=== PATIENT | male | born 1995 | race Caucasian/White ===

== ENCOUNTER 2016-11-06 14:50 | Emergency (ER) | payer BC ==
--- NOTE | ~2016-11-06 | CR278 ---
[facility] A Service of [facility] & [facility] RADIOLOGY TEXT RESULTS PATIENT: MONICA VOGEL LOCATION: CFTX : [birth year] UNIT #: [id number] AGE: [address]: Akil Oh SEX: M ORDER DR: [id number] [facility] [address] [place], [place] [address] [id number] E MR#: [id number] Acc #: [id number] NAME: MONICA VOGEL : 1995 SEX: M STUDY DATE/TIME: 11/06/2016 14:18 UNIT: [facility] ROOM: STUDY DESCRIPTION: CR Wrist 2 View Lt Attending Physician: Akil Oh Ordering Physician: Ed Parker Newell M.D. Primary Care Physician: Primary Care Physician No MEDICAL IMAGING REPORT This report is preliminary unless electronic signature is present EXAM Left wrist 3 views INDICATIONS Wrist pain and swelling today after falling off skateboard COMPARISON No comparisons FINDINGS Casting material obscures osseous detail. There is a questionable lucency of the distal radius extending to the joint space. This may indicate a nondisplaced distal radial fracture. This is along the ulnar aspect of the distal radius. This is best seen on the straight AP view. Carpal alignment maintained. Soft tissue swelling distal forearm. IMPRESSION Casting material obscures osseous detail. However there is appears to be a lucency through the ulnar aspect of the distal radius seen on the AP view concerning for a nondisplaced fracture extending to the joint space. Dictated by... Robert Singh M.D. THIS IS AN ELECTRONICALLY VERIFIED REPORT Robert Singh M.D. at 11/06/2016 4:53 PM ARS/to TD: 11/06/2016 16:38 JOB #: [id number] MEDICAL IMAGING REPORT Page 1 of 1 COPY
--- NOTE | ~2016-11-06 | CR132 ---
[facility] A Service of [facility] & [facility] RADIOLOGY TEXT RESULTS PATIENT: MONICA VOGEL LOCATION: CFTX : [birth year] UNIT #: [id number] AGE: [address]: Akil Oh SEX: M ORDER DR: [id number] [facility] [address] [place], [place] [address] [id number] E MR#: [id number] Acc #: [id number] NAME: MONICA VOGEL : 1995 SEX: M STUDY DATE/TIME: 11/06/2016 14:18 UNIT: [facility] ROOM: STUDY DESCRIPTION: CR Forearm 2 View Lt Attending Physician: Akil Oh Ordering Physician: Ed Doctor [id number] [facility] Primary Care Physician: No Primary Care Physician MEDICAL IMAGING REPORT This report is preliminary unless electronic signature is present EXAM Left forearm 2 views HISTORY Wrist and arm pain after fall off skateboard today. FINDINGS 2 views left forearm demonstrate subtle nondisplaced transverse fracture of the distal radial metaphysis with a probable longitudinal component extending into the radiocarpal joint at the level of the lunate, better demonstrated on wrist x-ray reported separately. No fracture angulation. Overlying splint. No additional fracture. No dislocation. Dictated by... oLuis Matthew M.D. THIS IS AN ELECTRONICALLY VERIFIED REPORT Louis Matthew M.D. at 11/06/2016 10:34 PM DFRojelio/ravindra TD: 11/06/2016 17:21 JOB #: [id number] MEDICAL IMAGING REPORT Page 1 of 1 COPY
== END 2016-11-06 16:02 | disposition home or self-care (01) ==
LOC: CFTX 14:50
DX: S52.502A Unspecified fracture of the lower end of left radius, initial encounter for closed fracture (principal); V00.131A Fall from skateboard, initial encounter; Y92.410 Unspecified street and highway as the place of occurrence of the external cause
CPT/HCPCS: 29125; 73090; 73100; 99284